=== PATIENT | male | born 1935 | race Two or more races ===

== ENCOUNTER 2017-11-10 14:35 | Outpatient (CLI) | payer OTHER ==
[~2017-11-10 14:35] MED LIST: AVANDAMET 1 MG/1 TAB PO; GLUCOTROL XL5 MG PO; HYZAAR 100-251 EACH PO; INTEGRA PLUS C1 EACH PO; LEVAQUIN750 MG PO; LIPITOR20 MG PO; OXYC1TAB9 PO; TENORMIN25 MG PO; TOPROL XL50 M1 PO; VYTORIN 10-20 M1 TAB PO; XARELTO10 MG PO
== END 2017-11-10 15:12 | disposition home or self-care (01) ==
LOC: SONOGRAMA 14:35
DX: N28.1 Cyst of kidney, acquired (principal)

== ENCOUNTER 2018-06-07 13:48 | Emergency (ER) | payer OTHER ==
[~2018-06-07] VITALS: Ht 170.2 cm; Wt 70.3 kg
== END 2018-06-07 23:55 | disposition home or self-care (01) ==
LOC: ER 13:48
DX: K21.9 Gastro-esophageal reflux disease without esophagitis (principal); R07.89 Other chest pain

== ENCOUNTER 2018-10-26 13:56 | Outpatient (CLI) | payer OTHER | END 2018-10-26 16:00 | disposition home or self-care (01) | LOC: SONOGRAMA 13:56 → RX STUDY 10-27 08:15 → SONOGRAMA 10-27 10:35 | DX: K57.90 Diverticulosis of intestine, part unspecified, without perforation or abscess without bleeding (principal); K80.20 Calculus of gallbladder without cholecystitis without obstruction; R91.8 Other nonspecific abnormal finding of lung field; I10 Essential (primary) hypertension; E78.00 Pure hypercholesterolemia, unspecified; E11.9 Type 2 diabetes mellitus without complications; R06.09 Other forms of dyspnea; N18.9 Chronic kidney disease, unspecified ==

== ENCOUNTER 2018-10-27 07:08 | Outpatient (CLI) | payer OTHER | END 2018-10-27 07:13 | disposition home or self-care (01) | LOC: RX STUDY 07:08 | DX: R13.19 Other dysphagia (principal) ==

== ENCOUNTER 2019-05-04 14:32 | Outpatient (CLI) | payer OTHER | END 2019-05-04 14:34 | disposition home or self-care (01) | LOC: RAD 14:32 | DX: M54.5 Low back pain (principal); M25.551 Pain in right hip; M25.552 Pain in left hip ==

== ENCOUNTER → 2019-05-09 | Outpatient (CLI) | payer OTHER | END | disposition home or self-care (01) | LOC: MRI 13:53 | DX: M51.17 Intervertebral disc disorders with radiculopathy, lumbosacral region (principal); M54.5 Low back pain | CPT/HCPCS: 72148 ==

== ENCOUNTER → 2019-10-17 | Outpatient (CLI) | payer OTHER | END | disposition home or self-care (01) | LOC: SONOGRAMA 12:54 → RAD 12:54 | DX: N28.1 Cyst of kidney, acquired (principal) ==

== ENCOUNTER 2019-12-13 13:41 | Outpatient (CLI) | payer OTHER | END 2019-12-13 13:43 | disposition home or self-care (01) | LOC: RAD 13:41 | DX: M17.0 Bilateral primary osteoarthritis of knee (principal) ==

== ENCOUNTER → 2019-12-29 15:47 | Outpatient (CLI) | payer OTHER | END | disposition home or self-care (01) | LOC: RAD 15:47 | DX: M46.04 Spinal enthesopathy, thoracic region (principal); M46.06 Spinal enthesopathy, lumbar region ==

== ENCOUNTER 2020-03-07 14:29 | Outpatient (CLI) | payer OTHER | END 2020-03-07 14:56 | disposition home or self-care (01) | LOC: RAD 14:29 | DX: J84.89 Other specified interstitial pulmonary diseases (principal) ==

== ENCOUNTER 2020-10-24 14:12 | Outpatient (CLI) | payer OTHER | END 2020-10-24 16:13 | disposition home or self-care (01) | LOC: SONOGRAMA 14:12 | PROVIDERS: ATTEND Urology | DX: N28.1 Cyst of kidney, acquired (principal) ==